=== PATIENT | female | born 1980 | race African-American/Black ===

== ENCOUNTER → 2017-06-08 | Outpatient (CLI) | payer OTHER ==
[2017-06-11 09:51] LABS: Hepatitis B Surface Antibody Positive
== END | disposition home or self-care (01) ==
LOC: LAB 13:22
PROVIDERS: ATTEND Nurse Practitioner
DX: S61.233A Puncture wound without foreign body of left middle finger without damage to nail, initial encounter (principal)
CPT/HCPCS: 36415; 86703; 86706; 86803; 87340